=== PATIENT | male | born 1960 | race Caucasian/White ===

== ENCOUNTER 2019-11-18 08:16 | Day surgery (SDC) | payer OTHER ==
[~2019-11-18 08:16] MED LIST: Dextrose 5%-0.45% NaCl 1,000 ML IV SCH; Midazolam 1 MG/ML 2 ML SDV ONE; fentaNYL 100 MCG/2 ML SDV ONE
[2019-11-18] MEDS ORDERED: Midazolam 1 MG/ML 2 ML SDV IV ONE ×10 (08:17→09:56)
[2019-11-18] MEDS ORDERED: fentaNYL 100 MCG/2 ML SDV IV ONE ×3 (08:17→09:29)
--- NOTE | 2019-11-18 14:51 | OR ---
DATE: 11/18/2019 INTRODUCTION: This 59-year-old male referred by the [facility] for screening colonoscopy. DESCRIPTION OF PROCEDURE: After adequate preparation, a colonoscope was inserted into the rectum. This was easily passed all the way to the cecum. Confirmation of the cecum was made by visualization of the ileocecal valve on palpation in the right lower quadrant. The bowel prep was excellent. On withdrawal of the scope, a good examination of the colon was accomplished. The patient has no masses, polyps, bleeding sites, evidence of colitis, or diverticula. Air was suctioned from the colon and the scope removed. RECOMMENDATIONS: Followup screening colonoscopy 10 years or sooner for symptoms. [facility] /[id number]
== END 2019-11-18 11:15 | disposition home or self-care (01) ==
LOC: DL.ENDO 08:16
PROVIDERS: ATTEND Surgery
DX: Z12.11 Encounter for screening for malignant neoplasm of colon (principal); I10 Essential (primary) hypertension; Z11.59 Encounter for screening for other viral diseases; Z79.899 Other long term (current) drug therapy
CPT/HCPCS: 45378; 87635; J2250; J3010; J7042; U0002